=== PATIENT | male | born 1995 | race Caucasian/White ===

== ENCOUNTER 2016-03-31 12:47 | Day surgery (SDC) | payer OTHER ==
--- NOTE | 2016-03-28 09:05 | HP ---
DATE OF CLINIC: 03/22/16 KASHIF VIDALES : 1995 PLANNED PROCEDURE: Left Thumb Closed Reduction with Percutaneous Pinning DATE OF SURGERY: March 31, 2016 SURGEON: Antonio Chand M.D. PCP: Joey Thomas MD REFERRED HERE Self. HISTORY OF PRESENT ILLNESS Kashif Vidales is a 20 year old male. * Medication list reviewed with patient allergy list reviewed with patient. * Tried NSAIDS Ibuprofen PRN. This is a 20-year-old gentleman who sustained an injury to his left some on March 19, 2016, when he made a tackle playing rugby. He had immediate pain and was seen at an outside facility where x-rays were obtained and he was splinted for a left thumb metacarpal base fracture. He comes in today for follow up. He states that he has got about 4/10 pain. He has been taking Tylenol with codeine. He has no previous injuries at this site and he has not had any other procedures on this hand. He is right-hand dominant. PAST MEDICAL AND SURGICAL HISTORY: Noncontributory. He has a little bit of chronic low back pain. CURRENT MEDICATION * Acetaminophen-Codeine #3 300-30 MG Tablet as needed 2 days, 0 refills * Cyclobenzaprine HCl 5 MG Tablet as directed 0 days, 0 refills * Ibuprofen 200 MG Tablet as needed 0 days, 0 refills PAST MEDICAL/SURGICAL HISTORY Reported: Medical: A previous fracture. Surgical / Procedural: Appendectomy 1999 and Tonsilectomy 1999. SOCIAL HISTORY Social history changed. Behavioral: Tobacco use. Not a current smoker. Chewing tobacco Occasional and non-smoker never smoked. Smoking status: Never smoker. Alcohol: Alcohol use a social drinker Weekends. Drug Use: Not using drugs. Work: Student. ALLERGIES * Ampicillin * Penicillin FAMILY HISTORY Family medical history None as of 03/22/16 REVIEW OF SYSTEMS No recent constitutional symptoms to include fevers and chills. No recent cardiovascular symptoms to include chest pain or palpitations. No recent respiratory symptoms to include shortness of breath or recent infections. PHYSICAL FINDINGS * Vitals taken 03/22/2016 01:27 pm BP-Sitting R 119/68 mmHg Pulse Rate-Sitting 57 bpm Temp-Oral 97.8 F Height 70.5 in Weight 233 lbs Body Mass Index 33.0 kg/m2 Body Surface Area 2.24 m2 Pain Level 4 Ears, Nose, Throat: * ENT: normal. Lungs: * Clear to auscultation. Cardiovascular: Heart Rate And Rhythm: * Normal. Abdomen: * Normal. Neurological: Motor: * Dominant Hand = Right Hand. Patient is a well-developed, well-nourished male in no acute distress. They are awake, alert and conversant throughout the encounter. CARDIOVASCULAR: Intact peripheral pulses on bilateral upper extremities. No significant edema on inspection of bilateral upper extremities. NEUROLOGIC: Patient had intact coordinated composite motion of the bilateral upper extremities and sensation intact to light touch in all distributions of bilateral upper extremities. PSYCHIATRIC: Patient was oriented to person, place and time and displayed appropriate mood and affect during the encounter. SKIN: Exam of the skin on bilateral upper extremities showed no significant scars, lesions, rashes or masses. FOCUSED MUSCULOSKELETAL EXAM: The patient has normal resting station of the bilateral shoulders, elbows and wrists. His left thumb is in a thumb spica splint. He has a well perfused digit, good sensation on the radial and ulnar borders. He has no open injury at the base of his thumb. He is tender to palpation at the base of the metacarpal of the thumb. He has no evidence of instability of the joint itself. Full motion at the IP joint and intact neurologic exam to radial, ulnar, median, AIN, and PIN distributions. IMAGING A review of his x-rays shows a fracture across the base of the thumb metacarpal just distal to the joint and distal to the insertion at the oblique retinacular ligament. ASSESSMENT A 20-year-old male with a left thumb Silva's fracture. THERAPY * Patient not eligible for fall risk assessment. PLAN * Oth disp fx of base of first MC bone, left hand, init Percocet 5-325 MG TABS, 1or 2 tablets every 4 to 6 hours as needed, 5 days, 0 refills Closed reduction and percutaneous pinning in the operating room. Risks, benefits and alternatives were discussed with the patient and he elected to proceed. Informed consent was obtained and documented in the chart. We will put him on the schedule for surgery next week. CARE TEAM Joey Thomas MD [facility] SURGICAL CONSENT We have discussed surgical options including left thumb closed reduction with percutaneous pinning and nonoperative management. The patient was counseled in detail regarding the diagnosis, treatment options available, prognosis of each treatment option and the potential risks and complications. The risks of surgery include, but are not limited to, anesthetic , neurovascular complications, pulmonary embolism, deep vein thrombosis, wound dehiscence, failure of any or all of the discussed procedures, infection of the joint or surrounding soft tissue, need for revision surgery, chronic pain, limitations in activities of daily living, inability to return to work, and loss of normal range of motion or functional use of the extremity. There is the possibility of failure over time that may require additional operative or nonoperative treatment. The patient acknowledged that there are a number of perioperative risks not mentioned here and would still like to proceed. The patient is aware of and understands these risks, and wishes to proceed with the proposed surgical procedure and other procedures as indicated at the time of surgery. We will have the patient see their PCP for a preoperative medical risk assessment. The preoperative instructions were reviewed with the patient and all questions were answered.
[~2016-03-31 12:47] MED LIST: CLINDAMYCIN 600 MG PREMIX 50 ML IV ONE; CLINDAMYCIN 600 MG PREMIX 50 ML IV PRN; FENTANYL 5 ML ONE; IV START KIT ONE; LACTATED RINGERS 1,000 ML ONE; MIDAZOLAM HCL 1 MG/ML 2ML VIAL ONE
[2016-03-31] MEDS ORDERED: SCOPOLAMINE 1.5 MG/72 HR 1 EACH PATCH TD ONE (13:24)
[2016-03-31] MEDS ORDERED: DEXAMETHASONE SOD PHOS 4 MG/1 ML VIAL ONE (13:43)
[2016-03-31] MEDS ORDERED: LIDOCAINE 2% (PRES FREE) 5 ML VIAL ONE (13:43)
[2016-03-31] MEDS ORDERED: DIPHENHYDRAMINE HCL 50 MG/1 ML VIAL ONE (13:43)
[2016-03-31] MEDS ORDERED: PROPOFOL 20 ML IV ONE (13:43)
[2016-03-31] MEDS ORDERED: ONDANSETRON 4 MG/2ML 2 ML VIAL ONE (13:43)
[2016-03-31] MEDS ORDERED: PROMETHAZINE HCL 25 MG/ML VIAL IM PRN (13:52)
[2016-03-31] MEDS ORDERED: ONDANSETRON 4 MG/2ML 2 ML VIAL IV PRN ×2 (13:52→15:13)
[2016-03-31] MEDS ORDERED: NALOXONE HCL 0.4 MG/ML VIAL IV PRN (13:52)
[2016-03-31] MEDS ORDERED: ATROPINE SULFATE 0.4 MG/1 ML VIAL IV PRN (13:52)
[2016-03-31] MEDS ORDERED: HYDROMORPHONE HCL 1 MG/ML SYRINGE IV PRN ×2 (13:52→15:13)
[2016-03-31] MEDS ORDERED: LACTATED RINGERS 1,000 ML IV SCH ×2 (14:00→15:13)
--- NOTE | 2016-03-31 14:23 | PCMBPN ---
Brief Post Op Note: Date of Procedure: 03/31/16 Start Time: 1330 Preoperative Diagnosis: 1. left thumb metacarpal base fracture Postoperative Diagnosis: 1. Same Procedure: left thumb closed reduction and percutaneous pinning Surgeon: Antonio Chand MD Assist: Madeline Hankins Anesthesia: Andrew Curtis Findings: as above Condition: stable to PACU Complications: none IV Fluids: 800 mLs of LR Urine Output: 0 mLs Estimated Blood Loss: 1 mLs Tourniquet Time: none Specimens: none Implants: 2 x 0.062" k-wires Drains: none Antonio Chand MD
[2016-03-31] MEDS ORDERED: FENTANYL 100 MCG/2 ML VIAL ONE (14:35)
--- NOTE | 2016-03-31 14:36 | RAD ---
INTRAOPERATIVE FLUOROSCOPY HISTORY: Left first metacarpal closed reduction and pinning. TECHNIQUE: 46 seconds of fluoroscopy time was provided for Dr. Chand for purposes of procedural guidance. 2 fluoroscopic spot images were submitted for review. FINDINGS: Evidence of wire fixation of left first metacarpal fracture. Alignment is near-anatomic. IMPRESSION: Fluoroscopy provided for procedural guidance, wire fixation for left first metacarpal fracture.
[2016-03-31] MEDS: FENTANYL 100 MCG/2 ML VIAL IV PRN ×2 (14:37→14:45)
[2016-03-31] MEDS ORDERED: KETOROLAC TROMETHAMINE 30 MG/ML 1 ML VIAL ONE (14:51)
[2016-03-31] MEDS ORDERED: KETOROLAC TROMETHAMINE 30 MG/ML 1 ML VIAL IV ONE (14:53)
--- NOTE | 2016-03-31 14:53 | RAD ---
LEFT FINGER 2 VIEWS HISTORY: Status post closed reduction and pin fixation of the first metacarpal. COMPARISONS: None. TECHNIQUE: Frontal and lateral views of the left thumb. FRACTURE: Oblique fracture of the proximal first metacarpal. Subtle angulation at the fracture site. Status post wire fixation. SOFT TISSUES: Soft tissue swelling is present. RADIOOPAQUE FOREIGN BODY: Fixation wires. Overlying splint IMPRESSION: Status post wire fixation for first metacarpal fracture, fracture fragment alignment near-anatomic.
[2016-03-31] MEDS ORDERED: HYDROMORPHONE HCL 1 MG/ML SYRINGE ONE (15:00)
[2016-03-31] MEDS ORDERED: OXYCODONE/ACETAMINOPHEN 5/325 MG TABLET PO PRN (15:13)
[2016-03-31] MEDS ORDERED: DIPHENHYDRAMINE HCL 50 MG/1 ML VIAL IV PRN (15:13)
[2016-03-31] MEDS ORDERED: ACETAMINOPHEN 325 MG TABLET PO PRN (15:13)
[2016-03-31] MEDS ORDERED: HYDROMORPHONE HCL 0.5 MG/0.5 ML SYRINGE IV PRN (15:24)
[2016-03-31] MEDS ORDERED: OXYCODONE/ACETAMINOPHEN 5/325 MG TABLET ONE (17:00)
--- NOTE | 2016-04-01 09:23 | OP ---
Kashif VIDALES : 1995 [id number] DATE OF PROCEDURE: March 31, 2016 PREOPERATIVE DIAGNOSIS: Left thumb metacarpal base fracture. POSTOPERATIVE DIAGNOSIS: Right trigger thumb. PROCEDURE PERFORMED: LEFT THUMB CLOSED REDUCTION AND PERCUTANEOUS PINNING. SURGEON: Antonio Chand M.D. AUTOMOTIVE PROJECT ENGINEER: Brittany Durbin ANESTHESIA: Gertrude Colon.NJena SPECIMENS: No material was sent to the laboratory. ESTIMATED BLOOD LOSS: 1 mL. FLUIDS REPLACED: 800 mL crystalloid. TOURNIQUET TIME: None IMPLANTS: Two 0.062 inch K-wires. DRAINS: None. INDICATIONS: This is a 20-year-old right-hand dominant gentleman who sustained an injury to his left thumb resulting in a fracture of the base of his left thumb metacarpal. Exam and radiographic findings supported the above diagnosis. For additional details see his H&P. DESCRIPTION OF PROCEDURE: The patient was identified in the preoperative holding area where he was marked with an indelible marker by the operating surgeon. He was taken to the operating room where he was placed in the supine position on the operating room table. General anesthesia was induced. Perioperative antibiotics were administered. A well padded pre-calibrated nonsterile tourniquet was placed on his left upper arm. He was prepped and draped in the usual sterile fashion for surgery. A final operative time out was performed and confirmed by all members of the operative team. A provisional reduction of the thumb was obtained using traction and pronation. Images obtained in the AP and lateral projections showed adequate position of the fracture fragments. A 0.062 K-wire was placed percutaneously across the thumb metacarpal obtaining bicortical purchase in the index metacarpal. A second wire was placed in similar fashion at an oblique angle capturing both the metacarpal shaft and a portion of the metacarpal base and then entering the index metacarpal. At this point the thumb range of motion at the MCP joint was tested and the fracture was found to be stably reduced with appropriate reduction parameters. The wires were bent and cut off and Xeroform was placed around the basis of the wires. The patient had a sterile dressing of fluffs, web roll and a thumb spica splint placed and held in place with an YENI bandage. The drapes were removed. The patient was awakened from his anesthesia, extubated in the operating room and transferred to a stretcher and taken postoperatively to the postanesthesia care unit in stable condition. There were no observed intraoperative complications during this procedure. Job [id number] Cc: [facility]
== END 2016-03-31 17:32 | disposition home or self-care (01) ==
LOC: SDC 12:47
PROVIDERS: ATTEND Orthopaedic Surgery
PROC: 0PSS34Z Reposition Left Thumb Phalanx with Internal Fixation Device, Percutaneous Approach (ICD-10-PCS; principal; 2016-03-31)
DX: S62.212A Bennett's fracture, left hand, initial encounter for closed fracture (principal); W03.XXXA Other fall on same level due to collision with another person, initial encounter; Y93.63 Activity, rugby; F12.90 Cannabis use, unspecified, uncomplicated; F17.220 Nicotine dependence, chewing tobacco, uncomplicated; Z88.0 Allergy status to penicillin; Z79.1 Long term (current) use of non-steroidal anti-inflammatories (NSAID); Z79.891 Long term (current) use of opiate analgesic; Z79.899 Other long term (current) drug therapy
CPT/HCPCS: 76000; 73140 ×2; 26650; J1200; J1170; J3010 ×2; J1100; A9270 ×2; J1885; J2250; J2405; J7120